=== PATIENT | female | born 1990 | race Caucasian/White ===

== ENCOUNTER 2017-08-28 10:17 | Emergency (ER) | payer OTHER ==
[~2017-08-28] VITALS: Ht 160 cm; Wt 59.1 kg
[~2017-08-28 10:17] MED LIST: AMOXICILLIN500 MG PO; BENADRYL50 MG PO; COLACE100 MG PO; ENDOCET 5-3251 EACH PO; IBUPROFEN800 MG PO; MIRENA52 MG IY; Motrin PO; NAPROSYN500 MG PO; PEPCID20 MG PO; PREDNISONE10 MG PO
[2017-08-28 11:30] LABS: HEMATOCRIT 41.5 % (36.0-46.0); HEMOGLOBIN 14.4 G/DL (11.9-15.5); MCH 33.6 PG (29.0-34.0); MCHC 34.7 G/DL (30.0-36.0); PLATELET COUNT 204 K/uL (156-360); RBC DIS.WIDTH-CV 12.5 % (11.8-14.6); RBC DIS.WIDTH-SD 44.8 % (39-53); RED BLOOD COUNT 4.28 M/uL (3.80-5.20); WHITE BLOOD COUNT 4.6 K/uL (4.1-10.2)
[2017-08-28 11:44] LABS: CHLORIDE 107 mEq/L (99-109); POTASSIUM 3.8 mEq/L (3.7-5.4); SODIUM 138 mEq/L (136-147)
[2017-08-28 11:45] LABS: GLUCOSE 70 mg/dL (70-99)
[2017-08-28 11:47] LABS: ALBUMIN 4.1 g/dL (3.2-4.8)
[2017-08-28 11:49] LABS: CREATININE 0.7 mg/dL (0.6-1.3); GFR ESTIMATE (CALCULATED) > 59 mL/min/
[2017-08-28 11:50] LABS: TOTAL PROTEIN 6.6 g/dL (6.4-8.3); UREA NITROGEN (BUN) 7 mg/dL (9-23)
[2017-08-28 11:51] LABS: APPEARANCE CLEAR ((CLEAR)); BILIRUBIN NEGATIVE; BLOOD NEGATIVE; COLOR YELLOW ((YELLOW)); GLUCOSE (STRIP) NEGATIVE; KETONES NEGATIVE; LEUKOCYTES NEGATIVE; NITRITE NEGATIVE; PROTEIN (STRIP) NEGATIVE; SPECIFIC GRAVITY 1.013 (1.000-1.030); UCUL ADDED? NO; UROBILINOGEN 0.2 MG/DL (0.2-1.0)
[2017-08-28 11:52] LABS: TOTAL BILIRUBIN 0.6 mg/dL (0.0-1.0)
[2017-08-28 11:53] LABS: ALKALINE PHOSPHATASE 35 IU/L (3-129)
[2017-08-28 11:55] LABS: AST (GOT) 19 IU/L (2-34); DIRECT BILIRUBIN 0.3 mg/dL (0.0-0.3)
[2017-08-28 11:56] LABS: ALT (GPT) 17 IU/L (3-49); LIPASE 18 U/L (1.0-51.0)
[2017-08-28 11:58] LABS: QUANTITATIVE HCG < 4.0 MIU/ML
[2017-08-28] MEDS ORDERED: ROBAXIN500 MG PO (13:26)
[2017-08-28] MEDS ORDERED: MEDROL DOSEPAK4 MG PO (13:26)
[2017-08-28 13:44] VITALS: BP 132/50
== END 2017-08-28 13:45 | disposition home or self-care (01) ==
LOC: EME 10:17
PROVIDERS: Physician Assistant
DX: M54.10 Radiculopathy, site unspecified (principal); N83.12 Corpus luteum cyst of left ovary; F17.200 Nicotine dependence, unspecified, uncomplicated; Z88.5 Allergy status to narcotic agent; Z88.6 Allergy status to analgesic agent
CPT/HCPCS: 74176; 80048; 80076; 81003; 83690; 84702; 85027; 99281; 99284; J1885